=== PATIENT | female | born 1985 | race Hispanic/Latino ===

== ENCOUNTER 2017-02-19 07:57 | Emergency (ER) | payer MEDICARE ==
[~2017-02-19] VITALS: Ht 160 cm; Wt 72.7 kg
[2017-02-19] MEDS ORDERED: NAPROSYN500 MG PO (10:20)
[2017-02-19 10:24] VITALS: BP 113/71
== END 2017-02-19 10:34 | disposition home or self-care (01) ==
LOC: ED 07:57
DX: S00.83XA Contusion of other part of head, initial encounter (principal); J45.909 Unspecified asthma, uncomplicated; Y04.0XXA Assault by unarmed brawl or fight, initial encounter; Y92.89 Other specified places as the place of occurrence of the external cause

== ENCOUNTER 2018-01-12 13:42 | Emergency (ER) | payer MEDICARE ==
[~2018-01-12] VITALS: Ht 160 cm; Wt 73.0 kg
[~2018-01-12 13:42] MED LIST: NAPROSYN500 MG PO
[2018-01-12 14:32] LABS: URINE BLOOD DIPSTICK NEGATIVE (NEGATIVE); URINE COLOR YELLOW; URINE GLUCOSE - DIPSTICK NEGATIVE (NEGATIVE); URINE KETONE 40 mg/dL (NEGATIVE); URINE LEUK ESTERASE NEGATIVE (NEGATIVE); URINE NITRITE - DIPSTICK NEGATIVE (Negative); URINE PROTEIN - DIPSTICK NEGATIVE (NEG-TRACE); URINE SPECIFIC GRAVITY 1.025
[2018-01-12 14:40] LABS: HEMATOCRIT 32.4 % (37.0-47.0); HEMOGLOBIN 9.6 g/dl (12.0-16.0); IMMATURE GRANULOCYTES 0.3 % (0.0-1.0); MEAN CORPUSCULAR HGB 19.6 pG CALC (26.0-32.0); MEAN CORPUSCULAR HGB CONC 29.6 g/L CALC (32.0-36.0); NEUT# 2.5 thou/uL (2.00-7.15); RED BLOOD COUNT 4.89 mill/uL (4.20-5.60); RED CELL DISTRI WIDTH 18.6 % (11.5-15.5)
[2018-01-12 14:47] LABS: ALBUMIN 4.5 g/dL (3.2-5.0); ALKALINE PHOSPHATASE 107 u/l (38-126); AMYLASE < 30 u/l (30-110); ANION GAP 19 (6-22 (CALC)); BILIRUBIN, TOTAL 0.3 mg/dL (0.0-1.4); BUN 8 mg/dL (7-17); BUN/CREATININE RATIO 12 (12-20 (CALC)); CARBON DIOXIDE 24 mmol/l (22-30); CHLORIDE 100 mmol/l (95-108); CREATININE 0.7 mg/dL (0.5-1.0); GFR > 60 ML/MIN (>=60 (CALC)); GFR FOR AFR.AMER. > 60 ML/MIN (>=60 (CALC)); LIPASE 97 u/l (23-300); POTASSIUM 3.7 mmol/l (3.5-5.1); SGOT/AST 24 u/l (14-36); SGPT/ALT 27 u/l (9-52); SODIUM 139 mmol/l (137-146); TOTAL PROTEIN 7.7 g/dL (6.3-8.2); URINE BILIRUBIN - DIPSTICK TRACE (NEGATIVE); URINE CLARITY CLEAR
[2018-01-12] MEDS ORDERED: LISINOPRIL10 MG PO (14:54)
[2018-01-12 15:07] LABS: MEAN CELL VOLUME 66.3 fL CALC (80.0-100.0)
[2018-01-12] MEDS ORDERED: PROTONIX40 MG PO (15:10)
[2018-01-12] MEDS ORDERED: CARAFATE1 GM PO (15:10)
[2018-01-12 15:26] VITALS: BP 115/68
== END 2018-01-12 15:27 | disposition home or self-care (01) ==
LOC: ED 13:42
PROVIDERS: Family Medicine
DX: K29.00 Acute gastritis without bleeding (principal); F17.210 Nicotine dependence, cigarettes, uncomplicated; Z87.11 Personal history of peptic ulcer disease
CPT/HCPCS: S0164